=== PATIENT | female | born 1985 | race Caucasian/White ===

== ENCOUNTER 2021-04-24 16:50 | Outpatient (CLI) | payer OTHER ==
[~2021-04-24 16:50] MED LIST: PREMARIN0.45 MG; ZYRTEC10 M3
== END 2021-04-24 16:53 | disposition home or self-care (01) ==
LOC: LAB 16:50
PROVIDERS: ATTEND Obstetrics & Gynecology
DX: Z20.818 Contact with and (suspected) exposure to other bacterial communicable diseases (principal); Z20.828 Contact with and (suspected) exposure to other viral communicable diseases